=== PATIENT | female | born 1975 | race Caucasian/White ===

== ENCOUNTER 2017-06-26 14:14 | Emergency (ER) | payer SELFPAY ==
[2017-06-26] MEDS ORDERED: Ibuprofen 200 MG TAB ONE (14:42)
[2017-06-26] MEDS ORDERED: Ondansetron ODT 4 MG TAB ONE (14:42)
== END 2017-06-26 15:00 | disposition home or self-care (01) ==
LOC: ERS 14:14
DX: J11.1 Influenza due to unidentified influenza virus with other respiratory manifestations (principal)
CPT/HCPCS: 99283; Q0162